=== PATIENT | female | born 1955 | race Caucasian/White ===

== ENCOUNTER → 2017-10-22 | Outpatient (CLI) | payer OTHER | END | disposition home or self-care (01) | LOC: C.LABSPEC 17:27 | PROVIDERS: ATTEND Orthopaedic Surgery | DX: M25.461 Effusion, right knee (principal) ==

== ENCOUNTER 2018-09-22 10:40 | Inpatient (IN) ==
--- NOTE | 2018-08-24 13:05 | Anesthesiology Consultation ---
Date of Service August 24, 2018 Assessment & Plan (1) Encounter for pre-operative examination: PCP Clearance 08/26 = "Patient is currently in stable condition and at low risk for cardiac or pulmonary complications with the proposed procedure." *Pt is on Azilect for Parkinson's disease. Pt instructed at [facility] appt to discontinue this medication two weeks prior to surgery (last dose being Thursday 09/07). Neurologist aware and OK with stopping. PCP instructed patient to continue all Parkinson's medications-- L/M with patient reiterating that she STOP the Azilect on 09/07. Chart Review Chart Review: Acceptable Risk for Surgery and Patient seen in Pre Admission Testing Teaching & Discussion Instructed NPO after midnight before surgery, except medications with 15 cc of w ater. Medication instructions provided according to the [facility] guidelines. History Surgery Operation Date: 09/22/18 13:50 Proposed Procedures p Left Total Knee Arthroplasty - Tono Bella DO Height/Weight Height: 5 ft 3 in Weight: 81.3 kg Allergies Allergy/AdvReac Type Severity Reaction Status Date / Time No Known Allergies Allergy Verified 08/19/18 10:18 Medications Home Medications Medication Instructions Recorded Confirmed Last Taken C,E,zinc,copper [id number] 1 cap PO QAM 08/19/18 08/19/18 Unknown [Ocuvite Adult 50 Plus] amantadine HCl 100 mg PO TID 08/19/18 08/19/18 Unknown baclofen 10 mg PO BID PRN 08/19/18 08/19/18 Unknown carbidopa-levodopa 1 tab PO TID 08/19/18 08/19/18 Unknown cholecalciferol (vitamin D3) 2,000 unit PO QPM 08/19/18 08/19/18 Unknown [Vitamin D3] ibuprofen 800 mg PO Q6H PRN 08/19/18 08/19/18 Unknown lisinopril 10 mg PO QAM 08/19/18 08/19/18 Unknown rasagiline 1 mg PO QAM 08/19/18 08/19/18 Unknown Past Medical History Medical History Anxiety Hypertension Obesity Osteoarthritis Parkinson disease DX'D 2011-F/U IGNATIOPHELIA SOB (shortness of breath) on exertion Sleep apnea PT USED CPAP FOR YEARS BUT NONE FOR PAST 5-6YRS 2/2 FACIAL IRRITATION Exercise / Class Metabolic Activity II 4-5 Yardwork/Stairs/Walk up hill (Some +SOB with 1 FOS, no CP. Does daily.) Past Family History Family History Father No problems noted. Past Surgical History Surgical History Fusion of spine LUMBAR X 2 H/O foot surgery RIGHT BUNION/HAMMERTOE History of arthroscopy LEFT SHOULDER History of colonoscopy History of hysterectomy TOTAL History of total knee replacement RIGHT Past Anesthesia History No Hx of Anesthesia Complications and No Family Hx of Anesthesia Complications History of PONV No Hx of PONV and Hx of Motion Sickness Social History Smoking Status: Current every day smoker tobacco type: cigarettes Smoking cigarettes per day: 15 CIGS A DAY X 44 YRS Do You Dip or Chew Tobacco: No Hx Alcohol Use: No Hx Substance Use: No substance use type: does not use Review of Systems Pt denies any recent chest pain, shortness of breath, palpitations, cough, fever or URI. +post nasal drip with reflexive cough Physical Exam Vital Signs BP: 105/74 P: 68bpm SPO2: 96% RA T: 98.2 F R: 18 ENMT Mouth: + chipped teeth (upper L incisor) and + loose teeth (*LOOSE LOWER R C ENTRAL INCISOR*); no dental restorations Thyromental Distance: > or= 3.5 Finger Breadths (4) Mallampati Class: II Neck normal visual inspection and + limited neck extension (mildly) Respiratory normal respiratory effort Auscultation: lungs clear to auscultation bilaterally Cardiovascular Rate/Rhythm: regular rate and regular rhythm Heart Sounds: no murmur Vessels: no carotid bruit Extremities: no edema Testing Laboratory Results 08/24/18 13:49 08/24/18 13:43 08/24/18 08/24/18 08/24/18 13:49 13:49 13:49 PT 10.7 INR 1.0 APTT 27.7 Hemoglobin A1c 5.7 H Urine Color Yellow Urine Appearance Clear Urine pH 5.0 Ur Specific Robbins 1.019 Urine Protein Negative Urine Glucose (UA) Negative Urine Ketones Trace H Urine Nitrite Negative Ur Leukocyte Esterase Negative Blood Type Antibody Screen 08/24/18 13:49 PT INR APTT Hemoglobin A1c Urine Color Urine Appearance Urine pH Ur Specific Robbins Urine Protein Urine Glucose (UA) Urine Ketones Urine Nitrite Ur Leukocyte Esterase Blood Type A Positive Antibody Screen NEGATIVE Electrocardiogram Date: 08/24/18 Findings: + NSR @ (63) Chest X-Ray Date: 08/24/18 Findings: + NAD
--- NOTE | 2018-08-24 13:20 | PAT Medication Instructions ---
Medication Instructions Date of Service August 24, 2018 Home Medications C,E,zinc,copper [id number] [Ocuvite Adult 50 Plus] 1 cap PO QAM amantadine HCl 100 mg PO TID baclofen 10 mg PO BID PRN carbidopa-levodopa 1 tab PO TID cholecalciferol (vitamin D3) 2,000 unit PO QPM ibuprofen 800 mg PO Q6H PRN lisinopril 10 mg PO QAM rasagiline 1 mg PO QAM STOP taking 2 weeks before surgery C,E,zinc,copper [id number] [Ocuvite Adult 50 Plus] 1 cap PO QAM rasagiline 1 mg PO QAM --LAST DOSE THURSDAY 09/07 DO NOT take the morning of surgery baclofen 10 mg PO BID PRN lisinopril 10 mg PO QAM Take morning of surgery With a small sip of water, OTHERWISE NOTHING TO EAT OR DRINK AFTER MIDNIGHT: amantadine HCl 100 mg PO TID carbidopa-levodopa 1 tab PO TID Take evening before surgery amantadine HCl 100 mg PO TID baclofen 10 mg PO BID PRN (if needed) carbidopa-levodopa 1 tab PO TID cholecalciferol (vitamin D3) 2,000 unit PO QPM Other Notes If you have any questions please call us at [phone] or [phone] or [phone] or [phone]
[2018-08-24 14:22] LABS: Basophils # (auto) 0.05 K/uL (0-0.2); Basophils % (auto) 0.6 %; Eosinophils # (auto) 0.09 K/uL (0-0.5); Eosinophils % (auto) 1.2 %; Hematocrit (blood only) 41.9 % (37-47); Hemoglobin 14.1 g/dL (12.0-16.0); Immature Granulocytes # (auto) 0.01 K/uL (0.00-0.02); Immature Granulocytes % (auto) 0.1 %; Lymphocytes % (auto) 26.9 %; Mean Corpuscular Hgb Conc 33.7 g/dL (32-36); Mean Corpuscular Volume 89.7 fL (80-100); Mean Platelet Volume 10.3 fL (7.4-10.4); Monocytes # (auto) 0.56 K/uL (0.11-0.59); Monocytes % (auto) 7.2 %; Neutrophils # (auto) 4.99 K/uL (1.4-6.5); Platelet Count 273 K/uL (130-400); RDW Coefficient of Variation 13.4 % (11.5-14.5); RDW Standard Deviation 43.8 fL (36.4-46.3); Red Blood Count 4.67 M/uL (4.2-5.4)
--- NOTE | 2018-08-24 14:23 | XRay Report ---
XR chest Pre-admission PA/Lat CLINICAL HISTORY: 62 years-old Female presenting with preoperative evaluation. TECHNIQUE: PA and lateral views of the chest were obtained. COMPARISON: None. FINDINGS: Atherosclerosis of the aortic arch. Cardiac silhouette normal in size. Lungs and pleural spaces clear . Degenerative changes of the thoracic spine. Partially visualized lumbar fusion hardware. Upper abdo men normal. IMPRESSION: 1. No acute cardiopulmonary disease. Electronically signed by: Jaxson Tai M.D. 08/24/2018 2:22 PM
[2018-08-24 14:30] LABS: Appearance Urine Clear (Clear); Bilirubin Urine Negative (Negative); Blood Urine Negative (Negative); Color Urine Yellow; Glucose Urine UA Negative (Negative); Ketones Urine Trace (Negative); Leukocyte Esterase Urine Negative (Negative); Nitrite Urine Negative (Negative); Protein Urine Negative (Negative); Specific Gravity Urine 1.019 (1.000-1.030); Urobilinogen Urine Negative (Negative)
[2018-08-24 14:38] LABS: Partial Thromboplastin Time 27.7 Seconds (21.0-31.0); Prothrombin Time 10.7 Seconds (9.0-12.0)
[2018-08-24 16:29] LABS: Albumin Level 3.6 gm/dl (3.4-5.0); BUN Creatinine Ratio 18.2 (10-20); Calcium 9.1 mg/dl (8.5-10.1); Creatinine Clr Calc Pharmacy 88.8 ml/min; Est GFR (African American) 110.2; Est GFR (Non-African American) 95.1; Potassium 4.9 mmol/L (3.5-5.1)
[2018-08-25 06:44] LABS: Estimated Average Glucose 117 mg/dl; Hemoglobin A1C 5.7 % (4.5-5.6)
--- NOTE | 2018-08-26 12:54 | History & Physical Report ---
Date of Service August 26, 2018 Date of Surgery: 09-22-18 Assessment & Plan (1) Degenerative arthritis of left knee: Ramila is s/p knee arthroscopy in October, showed grade III and IV degenerative changes, underwent visco after with no relief. xrays showing DJD, using OTC tylenol with no relief. discussed further options, would like to proceed with a left TKA @ [facility]. at this point pain affecting her ADLs and would like to proceed with a left TKA at [facility] on 09/22/18 History of Present Illness Chief Complaint: left knee pain Primary Care Provider: NO PCP Ms aClero is a 62 year old female who complains of left knee pain, presents for evaluation prior to left total knee replacement at [facility]. She presents with pain and stiffness on the left side. previously had right TKA. She states that the symptoms have been chronic non-traumatic. The symptoms occur constantly with intermittent worsening. Currently the patient states that the symptoms are severe. The pain is described as aching and sharp and the symptoms occur continuously. She rates her current pain as 7/10 and worst is 10/10. The symptoms are aggravated by walking, repetitive activities and weight bearing. Ramila states that the symptoms are relieved by no specific activity. Patient is using a rolling walker for ambulation. Prior NSAIDs include ibuprofen, has also used OTC Tylenol. she has had previous visco as well as cortisone injections. she previously had Left knee arthroscopic partial medial meniscectomy, Partial lateral meniscectomy, Chondroplasty patellofemoral joint, Right knee aspiration by Dr. Bella 10/2017. Allergies Allergy/AdvReac Type Severity Reaction Status Date / Time No Known Allergies Allergy Verified 08/19/18 10:18 Home Medications Home Medications Medication Instructions Recorded Confirmed Type C,E,zinc,copper [id number] 1 cap PO QAM 08/19/18 08/19/18 History [Ocuvite Adult 50 Plus] amantadine HCl 100 mg PO TID 08/19/18 08/19/18 History baclofen 10 mg PO BID PRN 08/19/18 08/19/18 History carbidopa-levodopa 1 tab PO TID 08/19/18 08/19/18 History cholecalciferol (vitamin D3) 2,000 unit PO QPM 08/19/18 08/19/18 History [Vitamin D3] ibuprofen 800 mg PO Q6H PRN 08/19/18 08/19/18 History lisinopril 10 mg PO QAM 08/19/18 08/19/18 History rasagiline 1 mg PO QAM 08/19/18 08/19/18 History Past Med/Surg History Medical History Anxiety Hypertension Osteoarthritis Parkinson disease DX'D 2011-F/U DR ALEXANDRE SOB (shortness of breath) on exertion Sleep apnea PT USED CPAP FOR YEARS BUT NONE FOR PAST 5-6YRS 2/2 FACIAL IRRITATION Surgical History Fusion of spine LUMBAR X 2 H/O foot surgery RIGHT BUNION/HAMMERTOE History of arthroscopy LEFT SHOULDER History of colonoscopy History of hysterectomy TOTAL History of total knee replacement RIGHT Family History Father No problems noted. Social History Preferred Language: German Communication Ability: Effective Drama Critic Required: No Beliefs That Will Affect Care: None Current Living Situation: Spouse Other Information That Helps Us Care for You: No Feels Safe at Home: Yes Safety Concerns: Feels Safe At This Time Smoking Status: Current every day smoker Tobacco Type: cigarettes Cigarettes Per Day: 15 CIGS A DAY X 44 YRS Do You Dip or Chew Tobacco: No Second Hand Exposure: No Hx Alcohol Use: No Hx Substance Use: No Review of Systems Review of Systems: All systems reviewed & are unremarkable except as noted in HPI & below Constitutional: no fever, no chills and no sweats Respiratory: no cough and no dyspnea Cardiovascular: no chest pain Gastrointestinal: no abdominal pain Musculoskeletal: as per Subjective / HPI Integumentary: no rash Physical Exam Physical Exam: Ht: 5ft 3in Wt: 81.3kg BP: 126/84 Pulse: 72 Constitutional: WD/WN, vitals as above no acute distress Respiratory: normal respiratory effort, lungs clear to auscultation no respiratory distress, no labored breathing and does not use accessory muscles Cardiovascular: RRR, no murmur, no edema Gastrointestinal (Abdomen): normal bowel sounds, soft, nontender, no hepatosplenomegaly Musculoskeletal: Left Knee Physical Exam- she ambulates with a limp, there is no erythema or warmth, no ecchymosis, mild effusion, greatest tenderness over the medial joint line, positive crepitation with motion, modesto's negative, posterior drawer negative. positive mcmurrays medially, negative anterior drawer, knee stable with valgus/varus stress. no extensor lag. pain with active range of motion, AROM 0/3/110, Passive ROM 0/3/115. No pain with active/passive ROM of ankle. Lower Extremity Strength normal. Lower Extremity Neuro-vascular is normal Results & Data Diagnostic Findings Left Knee X-ray 08-17-18 showing degenerative changes to the left knee, greatest in her medial compartment and the PF joint. findings consistent with joint space narrowing, osteophyte formation and subchondral sclerosis. no acute bony pathology noted.
[~2018-09-22 10:40] MED LIST: ACETAMINOPHEN 500 MG TAB PO SCH; BUPIVACAINE 0.5 % 5 MG/1 ML PF 10ML VIAL ONE; CEFAZOLIN 2000MG 2,000 MG/15 ML SYR IV SCH; CeleBREX 200 MG CAP PO SCH; FAMOTIDINE 20 MG TAB PO SCH; GABAPENTIN 600 MG DOSE PO SCH; LIDOCAINE HCL 2% 2 ML VIAL/AMP(20MG/ML) INFIL ONE; LR 500ML BOLUS IV SCH; LR 500ML BOLUS, THEN 15ML/HR IV SCH; METOCLOPRAMIDE HCL 10 MG TABLET PO SCH; MIDAZOLAM HCL 1 MG/ML 2ML VIAL ONE; PROPOFOL IV EMULSION 10 MG/ML 20 ML VIAL IV ONE; ROPIVACAINE 0.5% 5 MG/ML 30 ML VIAL ONE; ROPIVACAINE 0.5% HCL/PF 150 MG, BUPIVACAINE 0.5% MPF 30 ML, EPINEPHrine 30MG/30ML (OR U... INSTIL SCH; TRANEXAMIC ACID 1,000 MG **IV Intra-op IV SCH; TRANEXAMIC ACID 1,000 MG **IV Pre-op IV SCH; dexAMETHasone 4 MG TAB PO SCH; fentaNYL citrate 100 MCG/2 ML VIAL ONE
--- NOTE | 2018-09-22 11:16 | History & Physical Bridge Note ---
Date of Service September 22, 2018 History & Physical Bridge Note I have examined the patient, reviewed the History & Physical and in the interval since the performance of the History & Physical I have noted the following changes of clinical significance: no changes noted
[2018-09-22] MEDS ORDERED: ONDANSETRON INJ 2 MG/ML 2 ML VIAL ONE (11:19)
[2018-09-22] MEDS ORDERED: ONDANSETRON INJ 2 MG/ML 2 ML VIAL IV PRN ×2 (11:34→15:35)
[2018-09-22] MEDS ORDERED: ATROPINE SULFATE 0.1 MG/ML 10ML SYR IV PRN (11:34)
[2018-09-22] MEDS ORDERED: ePHEDrine sulfate 50 MG/ML AMP IV PRN (11:34)
[2018-09-22] MEDS ORDERED: fentaNYL citrate 100 MCG/2 ML VIAL IV PRN (11:34)
[2018-09-22] MEDS ORDERED: BACITRACIN INJ 50,000 UNIT VIAL ONE (11:47)
[2018-09-22] MEDS ORDERED: ORTHO JOINT ANESTHETIC ONE (11:47)
[2018-09-22] MEDS ORDERED: ePHEDrine sulfate 50 MG/ML SYR ONE (13:10)
--- NOTE | 2018-09-22 13:20 | Operative Report ---
Post Operative Report Pre & Post Diagnosis Operation Date: 09/22/18 13:20 Pre-Op Diagnosis: Degenerative arthritis of left knee Post-Op Diagnosis: Degenerative arthritis of left knee Procedure Operation Date: 09/22/18 13:20 Actual Procedures p Left Total Knee Arthroplasty(Left) utilizing [employer]on [employer] Nephew non-block journey to total knee arthroplasty size 5 femur 4 tibia 10 polyethylene 32 oval patella- Tono Bella DO Surgeon Tono Bella DO [employer] Rah CALDWELL Estimated Blood Loss 5 Findings Consistent with Post-Op Diagnosis Patient presents severe end-stage tricompartmental degenerative disease left knee medial osteophyte subchondral cystic changes eburnated [id number] patient presents for total knee arthroplasty after failed attempts at conservative management Specimens Bone and cartilage Drains Medium bore Hemovac Complications none Disposition Accompanied Patient To Recovery: No Disposition: Recovery Room Indications Patient presents with severe end-stage tricompartmental degenerative disease left knee no response to conservative management and physical therapy anti- inflammatories relative rest activity modification cortical steroid injections patient presents for left total knee arthroplasty Description of Procedure After proper prepping and draping of the left lower extremity anterior midline incision was made over the region of the extensor extensor mechanism after meticulous hemostasis was obtained and maintained in subcutaneous tissues a medial parapatellar incision was made The patella was subluxed lateralward the medial lateral gutter were cleaned from any hypertrophic synovitis and scar tissue of the distal femoral block was placed and the distal femoral osteotomy cut was made subsequently the chamfers anterior and posterior osteotomy cuts were made utilizing the 4-in-1 block the tibia was subsequently subluxed anteriorward medial and ateral meniscal remnants were excised in their entirety remnants of the anterior and posterior cruciate ligaments were excised in their entirety excellent exposure of the proximal tibia was obtained the tibial osteotomy guide was placed on the proximal tibial osteotomy cut was made once again the knee was irrigated with copious amounts of sterile saline solution the patella was subsequently everted lateralward thickened scar tissue around the patella was removed the patella was subsequently cut utilizing a freehand technique and was drilled prepared for final preparation and placement of patella socially flexion-extension gaps were checked and the equal and symmetric trials were placed to the appropriate femoral and tibial trials with poly-spacer being placed for equal flexion and extension gaps and full range of motion including extension to 0 and flexion to 140 the trial components after having been taken to recovery range of motion was subsequently removed meticulous hemostasis was obtained and maintained subsequently a knee block injection of joint cocktail including ropivacaine 0.5% 150 mg. Bupivacaine 0.5% epinephrine 1-200,030 mL's toradol 30 mg dexamethasone 4 mg ketamine 10 mg clonidine 100 micrograms normal saline solution 30 mg was infiltrated into the soft tissues of the posterior knee medial lateral gutters and periosteal synovium special attention was paid to protect neurovascular structures at all times subsequently trial components having been removed the knee was irrigated with sterile saline solution. debris was removed the proximal tibia was subsequently prepared and was made ready for the placement of the tibial component tibial component was also cemented and tamped into position the femoral component was subsequently placed and cemented in the position the patellar component was subsequently cemented in position because hemostasis once again obtained and maintained wound having been thoroughly irrigated with debridement and debridement lavage was performed as well as a medial parapatellar incision closed with #1 Vicryl in interrupted fashion subcutaneous was closed with #2 Vicryl skin was closed with skin clips. PA-C was necessary for prepping and drapping as well as wound baltazar sure of deep fascia Sub cutaneous tissue and skin and was necessary for the case. A sterile compressive dressing was placed patient was taken to recovery in stable condition of report dictated by Shayne I attest to the content of the Intraoperative Record and any orders documented therein. Any exceptions are noted below. I attest to the content of the Intraoperative Record and any orders documented therein. Any exceptions are noted below.
--- NOTE | 2018-09-22 14:51 | XRay Report ---
TWO VIEWS LEFT KNEE CLINICAL HISTORY: Postoperative examination. FINDINGS: AP and crosstable lateral portable views of the left knee are obtained. A left knee arthrop lasty is in near anatomic alignment. There has been undersurface remodeling of the patella. No acute fracture is seen. There are expected postoperative changes around the knee including a surgical drain , soft tissue edema, and subcutaneous gas. IMPRESSION: Expected postoperative changes status post left knee arthroplasty. No acute fracture is s een. Electronically signed by: Martin Liu M.D. 09/22/2018 2:50 PM
--- NOTE | 2018-09-22 15:19 | Anesthesiology Progress Note ---
Date of Service September 22, 2018 Anesthesia Post Procedure Vital Signs Vital Signs: Temp Pulse Pulse Resp BP Pulse Ox 09/22/18 14:55 36.8 C 69 12 120/69 97 09/22/18 14:45 78 18 116/78 93 09/22/18 14:35 78 17 127/72 92 09/22/18 14:25 77 15 126/67 93 09/22/18 14:15 78 19 116/73 98 09/22/18 14:05 36.9 C 78 17 117/68 97 09/22/18 11:21 36.6 C 84 20 129/87 96 Transfer of Care Handoff Completed per policy Notes Mental Status: alert / awake / arousable and participated in evaluation Patient Amnestic to Procedure: Yes Nausea / Vomiting: adequately controlled Pain: adequately controlled Airway Patency, RR, SpO2: stable & adequate BP & HR: stable & adequate Hydration State: stable & adequate Anesthetic Complications: no major complications apparent and Pt Satisfied with anesthetic care
[2018-09-22] MEDS ORDERED: HYDROmorphone INJ 1 MG/ML SYRINGE IV PRN (15:35)
[2018-09-22] MEDS ORDERED: METOCLOPRAMIDE HCL INJ 5 MG/ML 2 ML VIAL IV PRN (15:35)
[2018-09-22] MEDS ORDERED: SODIUM CHLORIDE 0.9% 1000ML 1,000 ML IV SCH (15:35)
[2018-09-22] MEDS ORDERED: MAGNESIUM HYDROXIDE SUSP 30 ML UDC PO PRN (15:35)
[2018-09-22] MEDS ORDERED: BISACODYL 10 MG SUPP PR PRN (15:35)
[2018-09-22] MEDS ORDERED: BACLOFEN 10 MG TAB PO PRN (15:35)
[2018-09-22] MEDS ORDERED: NALOXONE HCL 0.4 MG/1 ML VIAL/CARP IV PRN (15:35)
[2018-09-22] MEDS: KETOROLAC TROMETHAMINE 15 MG/ML VIAL IV SCH (17:31)
[2018-09-22] MEDS: CEFAZOLIN 2000MG 2,000 MG/15 ML SYR IV SCH (20:31)
[2018-09-22] MEDS: SENNA 8.6 MG TAB PO SCH (20:32)
[2018-09-22] MEDS: DOCUSATE SODIUM 100 MG CAP PO SCH (20:32)
[2018-09-22] MEDS: ASPIRIN 81 MG ECTAB PO SCH (20:32)
[2018-09-22] MEDS: CARBIDOPA/LEVODOPA 25/100MG TAB PO SCH (20:33)
[2018-09-22] MEDS: AMANTADINE HCL 100 MG CAPSULE PO SCH (20:33)
[2018-09-22] MEDS: CHOLECALCIFEROL 1,000 UNITS TAB PO SCH (20:33)
[2018-09-22] MEDS: ACETAMINOPHEN 500 MG TAB PO SCH (21:16)
[2018-09-23] MEDS: KETOROLAC TROMETHAMINE 15 MG/ML VIAL IV SCH ×3 (00:06→11:57)
[2018-09-23] MEDS: ACETAMINOPHEN 500 MG TAB PO SCH ×3 (04:43→22:27)
[2018-09-23] MEDS: CEFAZOLIN 2000MG 2,000 MG/15 ML SYR IV SCH (04:43)
[2018-09-23 06:51] LABS: Hematocrit (blood only) 39.4 % (37-47); Hemoglobin 13.1 g/dL (12.0-16.0); Mean Corpuscular Hgb Conc 33.2 g/dL (32-36); Mean Corpuscular Volume 89.5 fL (80-100); Mean Platelet Volume 10.3 fL (7.4-10.4); Platelet Count 236 K/uL (130-400); RDW Standard Deviation 42.7 fL (36.4-46.3); White Blood Count 19.97 K/uL (4.8-10.8)
[2018-09-23 07:24] LABS: BUN Creatinine Ratio 21.1 (10-20); Est GFR (African American) 110.7; Est GFR (Non-African American) 95.5; Potassium 4.4 mmol/L (3.5-5.1)
--- NOTE | 2018-09-23 08:16 | Anesthesiology Progress Note ---
Date of Service September 23, 2018 Anesthesia Post Procedure Vital Signs Vital Signs: Temp Pulse Pulse Resp BP Pulse Ox 09/23/18 07:09 36.8 C 75 18 144/70 H 94 09/23/18 03:47 36.6 C 69 18 138/73 93 09/22/18 23:08 36.8 C 79 17 134/74 90 09/22/18 19:19 37.0 C 73 18 135/74 94 09/22/18 18:18 36.8 C 79 17 151/74 H 94 09/22/18 17:15 36.8 C 90 18 153/75 H 94 09/22/18 16:13 36.6 C 72 17 127/75 93 09/22/18 15:37 36.5 C 69 17 114/70 94 09/22/18 15:15 36.8 C 75 16 129/81 91 09/22/18 14:55 36.8 C 69 12 120/69 97 09/22/18 14:45 78 18 116/78 93 09/22/18 14:35 78 17 127/72 92 09/22/18 14:25 77 15 126/67 93 09/22/18 14:15 78 19 116/73 98 09/22/18 14:05 36.9 C 78 17 117/68 97 09/22/18 11:21 36.6 C 84 20 129/87 96 Notes Mental Status: alert / awake / arousable and participated in evaluation Patient Amnestic to Procedure: Yes Nausea / Vomiting: adequately controlled Pain: adequately controlled Airway Patency, RR, SpO2: stable & adequate BP & HR: stable & adequate Hydration State: stable & adequate Neuraxial Anesthesia: was administered and sensory block resolved Anesthetic Complications: no major complications apparent and Pt Satisfied with anesthetic care
[2018-09-23] MEDS: ASPIRIN 81 MG ECTAB PO SCH ×2 (08:32→20:26)
[2018-09-23] MEDS: LISINOPRIL 10 MG TAB PO SCH (08:33)
[2018-09-23] MEDS: MULTIVITAMIN TAB PO SCH (08:33)
[2018-09-23] MEDS: DOCUSATE SODIUM 100 MG CAP PO SCH ×2 (08:33→20:26)
[2018-09-23] MEDS: CARBIDOPA/LEVODOPA 25/100MG TAB PO SCH ×3 (08:33→20:26)
[2018-09-23] MEDS: AMANTADINE HCL 100 MG CAPSULE PO SCH ×3 (08:33→20:26)
--- NOTE | 2018-09-23 09:48 | Orthopedic Progress Note ---
Date of Service September 23, 2018 Assessment & Plan (1) Degenerative arthritis of left knee: POD #1, Left TKA PT/ OT DVT proph- ASA D/C planning- Home w HH Subjective POD #1, doing well, denies SOB, Cp, N/V. Pain controlled well. Drain output 250cc's Physical Exam Physical Exam: Left knee dressings c/d/i, no drainage, toes/ ankle mobile, no calf tenderness, A&Ox3. Results & Data Vital Signs (Past 12 Hours) Vital Signs Temp Pulse Resp BP Pulse Ox 09/23/18 07:09 36.8 C 75 18 144/70 H 94 09/23/18 03:47 36.6 C 69 18 138/73 93 09/22/18 23:08 36.8 C 79 17 134/74 90
[2018-09-23] MEDS: OXYCODONE HCL IR 5 MG TAB (IMMEDIATE RELEASE) PO PRN ×2 (10:31→15:37)
[2018-09-23] MEDS: SENNA 8.6 MG TAB PO SCH (20:26)
[2018-09-23] MEDS: CeleBREX 200 MG CAP PO SCH (20:26)
[2018-09-23] MEDS: CHOLECALCIFEROL 1,000 UNITS TAB PO SCH (20:26)
[2018-09-24] MEDS: OXYCODONE HCL IR 5 MG TAB (IMMEDIATE RELEASE) PO PRN ×2 (03:53→08:00)
[2018-09-24] MEDS: ACETAMINOPHEN 500 MG TAB PO SCH (05:40)
--- NOTE | 2018-09-24 07:21 | Orthopedic Progress Note ---
Date of Service September 24, 2018 Assessment & Plan (1) Degenerative arthritis of left knee: POD #2, Left TKA PT/ OT DVT proph- ASA D/C planning- Home w HH Subjective POD #2, doing well, denies SOB, Cp, N/V. Pain controlled well. Physical Exam Physical Exam: Vital Signs Temp Pulse Resp BP Pulse Ox 09/23/18 23:30 36.7 C 72 17 113/67 92 09/23/18 16:03 36.8 C 63 18 104/65 95 09/23/18 10:52 36.9 C 67 16 115/70 95 Intake and Output 09/23/18 09/24/18 09/24/18 22:59 06:59 14:59 Intake Total 400 / 600 200 / 600 Output Total 125 / 375 50 / 375 Balance 275 / 225 150 / 225 Intake: Oral 400 / 600 200 / 600 Output: Drain Output 125 / 225 50 / 225 Left Knee 125 / 225 50 / 225 Other: # Unmeasured Voi ds 1 Constitutional: WD/WN, vitals as above no acute distress Musculoskeletal: left knee: NVDI, calf SNT, negative stacey sign. DP palpable, able to wiggle toes/ankle movement without difficulty. GAUDENCIO dressing clean dry and intact. expected post-operative bruising noted. Results & Data Vital Signs (Past 12 Hours) Vital Signs Temp Pulse Resp BP Pulse Ox 09/23/18 23:30 36.7 C 72 17 113/67 92 Diagnostic Findings TWO VIEWS LEFT KNEE CLINICAL HISTORY: Postoperative examination. FINDINGS: AP and crosstable lateral portable views of the left knee are obtained. A left knee arthroplasty is in near anatomic alignment. There has been undersurface remodeling of the patella. No acute fracture is seen. There are expected postoperative changes around the knee including a surgical drain, soft tissue edema, and subcutaneous gas. IMPRESSION: Expected postoperative changes status post left knee arthroplasty. No acute fracture is seen.
--- NOTE | 2018-09-24 07:45 | Discharge Summary ---
Date of Service date of discharge: September 24, 2018 date of admission: 09/22/18 Admission HPI Per Admitting Provider Ms Calero is a 62 year old female who complains of left knee pain, presents for evaluation prior to left total knee replacement at [facility]. She presents with pain and stiffness on the left side. previously had right TKA. She states that the symptoms have been chronic non-traumatic. The symptoms occur constantly with intermittent worsening. Currently the patient states that the symptoms are severe. The pain is described as aching and sharp and the symptoms occur continuously. She rates her current pain as 7/10 and worst is 10/10. The symptoms are aggravated by walking, repetitive activities and weight bearing. Ramila states that the symptoms are relieved by no specific activity. Patient is using a rolling walker for ambulation. Prior NSAIDs include ibuprofen, has also used OTC Tylenol. she has had previous visco as well as cortisone injections. she previously had Left knee arthroscopic partial medial meniscectomy, Partial lateral meniscectomy, Chondroplasty patellofemoral joint, Right knee aspiration by Dr. Bella 10/2017. Principal Diagnosis left knee osteoarthritis Discharge Exam Vital Signs Temp Pulse Resp BP Pulse Ox 09/23/18 23:30 36.7 C 72 17 113/67 92 09/23/18 16:03 36.8 C 63 18 104/65 95 09/23/18 10:52 36.9 C 67 16 115/70 95 Intake and Output 09/23/18 09/24/18 09/24/18 22:59 06:59 14:59 Intake Total 400 / 600 200 / 600 Output Total 125 / 375 50 / 375 Balance 275 / 225 150 / 225 Intake: Oral 400 / 600 200 / 600 Output: Drain Output 125 / 225 50 / 225 Left Knee 125 / 225 50 / 225 Other: # Unmeasured Voids 1 Constitutional WD/WN, vitals as above no acute distress Musculoskeletal left knee: NVDI, calf SNT, negative stacey sign. DP palpable, able to wiggle toes/ankle movement without difficulty. GAUDENCIO dressing clean dry and intact. expected post-operative bruising noted. Discharge Data Allergies Allergy/AdvReac Type Severity Reaction Status Date / Time No Known Allergies Allergy Verified 09/22/18 11:14 Consultations 09/22/18 15:35 Consult Case Management - Discharge Planning Routine Procedures Performed Operation Date: 09/22/18 13:20 Actual Procedures p Left Total Knee Arthroplasty(Left) - Tono Bella DO Ordered Studies 09/22/18 05:00 US - OR guided needle placemen Routine Hospital Course (1) Degenerative arthritis of left knee: POD #2, Left TKA PT/ OT DVT proph- ASA D/C planning- Home w HH Patient was a same day admission after undergoing a successful left TKA, they tolerated the procedure well. Post-operatively, their activity was progressed and well tolerated. Please refer to daily progress notes and PT notes for complete details. After exam on 09/24/18, patient felt to be stable for discharge home with HHPT. Patient will f/u in the office in 2 weeks for further evaluation including x-rays and incision check, sooner if having any issues or concerns. Below are pertinent labs/studies during their hospital stay: Laboratory Results WBC 19.97 K/uL (4.8-10.8) H 09/23/18 06:34 RBC 4.40 M/uL (4.2-5.4) 09/23/18 06:34 Hgb 13.1 g/dL (12.0-16.0) 09/23/18 06:34 Hct 39.4 % (37-47) 09/23/18 06:34 MCV 89.5 fL (80-100) 09/23/18 06:34 MCH 29.8 pg (25-34) 09/23/18 06:34 MCHC 33.2 g/dL (32-36) 09/23/18 06:34 RDW Std Deviation 42.7 fL (36.4-46.3) 09/23/18 06:34 RDW Coeff of Maren 13.0 % (11.5-14.5) 09/23/18 06:34 Plt Count 236 K/uL (130-400) 09/23/18 06:34 MPV 10.3 fL (7.4-10.4) 09/23/18 06:34 Immature Gran % (Auto) 0.1 % 08/24/18 13:49 Neut % (Auto) 64.0 % 08/24/18 13:49 Lymph % (Auto) 26.9 % 08/24/18 13:49 Bennett % (Auto) 7.2 % 08/24/18 13:49 Eos % (Auto) 1.2 % 08/24/18 13:49 Baso % (Auto) 0.6 % 08/24/18 13:49 Immature Gran # (Auto) 0.01 K/uL (0.00-0.02) 08/24/18 13:49 Neut # (Auto) 4.99 K/uL (1.4-6.5) 08/24/18 13:49 Lymph # (Auto) 2.10 K/uL (1.2-3.4) 08/24/18 13:49 Bennett # (Auto) 0.56 K/uL (0.11-0.59) 08/24/18 13:49 Eos # (Auto) 0.09 K/uL (0-0.5) 08/24/18 13:49 Baso # (Auto) 0.05 K/uL (0-0.2) 08/24/18 13:49 PT 10.7 Seconds (9.0-12.0) 08/24/18 13:49 INR 1.0 (0.9-1.1) 08/24/18 13:49 APTT 27.7 Seconds (21.0-31.0) 08/24/18 13:49 PTT Ratio 1.0 08/24/18 13:49 Sodium 140 mmol/L (136-145) 09/23/18 06:34 Potassium 4.4 mmol/L (3.5-5.1) 09/23/18 06:34 Chloride 108 mmol/L (98-107) H 09/23/18 06:34 Carbon Dioxide 26 mmol/L (21-32) 09/23/18 06:34 Anion Gap 6.0 (3-11) 09/23/18 06:34 BUN 14 mg/dl (7-18) 09/23/18 06:34 Creatinine 0.67 mg/dl (0.6-1.2) 09/23/18 06:34 Est Cr Clr Drug Dosing 88.0 ml/min 09/23/18 06:34 Est GFR ( Amer) 110.7 09/23/18 06:34 Est GFR (Non-Af Amer) 95.5 09/23/18 06:34 BUN/Creatinine Ratio 21.1 (10-20) H 09/23/18 06:34 Glucose 115 mg/dl (70-99) H 09/23/18 06:34 Estimat Average Glucose 117 mg/dl 08/24/18 13:49 Hemoglobin A1c 5.7 % (4.5-5.6) H 08/24/18 13:49 Calcium 9.0 mg/dl (8.5-10.1) 09/23/18 06:34 Albumin 3.6 gm/dl (3.4-5.0) 08/24/18 13:43 Urine Color Yellow 08/24/18 13:49 Urine Appearance Clear (Clear) 08/24/18 13:49 Urine pH 5.0 (4.5-7.5) 08/24/18 13:49 Ur Specific Bosworth 1.019 (1.000-1.030) 08/24/18 13:49 Urine Protein Negative (Negative) 08/24/18 13:49 Urine Glucose (UA) Negative (Negative) 08/24/18 13:49 Urine Ketones Trace (Negative) H 08/24/18 13:49 Urine Blood Negative (Negative) 08/24/18 13:49 Urine Nitrite Negative (Negative) 08/24/18 13:49 Urine Bilirubin Negative (Negative) 08/24/18 13:49 Urine Urobilinogen Negative (Negative) 08/24/18 13:49 Ur Leukocyte Esterase Negative (Negative) 08/24/18 13:49 Hepatitis C Ab Screen Neg (Neg) 09/23/18 06:34 Blood Type A Positive 08/24/18 13:49 Antibody Screen NEGATIVE 08/24/18 13:49 Total Time Total Time Spent Total Time Spent (In Minutes): 20 Total Time Includes: Examination of the Patient, Discharge Planning and Medication Reconciliation Discharge Plan Discharge Items Patient Disposition: Home - Home Health Services Reason For Visit: left total knee replacement Discharge Diagnosis: left total knee replacement Condition: Good Discharge Goals: Decrease discomfort, Improve function and Increase independence Activity: Per 'Additional Instructions' section Non-emergency contact: Primary Care Provider and Surgeon Call non-emergency contact if: you have any medication questions, your temperature is above 101, your wound has increased redness, your wound has increased drainage and your wound pain has increased Follow-up/Referrals: PCP,NO [Primary Care Provider] - Diet: Regular Addtl Provider Instructions: ACTIVITY RECOMMENDATIONS: SELF CARE INSTRUCTIONS AFTER TOTAL KNEE REPLACEMENT A. You may need to continue a physical therapy program after discharge from the hospital. There are several options available to you. Your doctor will assist you in selecting the best one for you. 1. An out-patient facility 2 to 3 times a week for therapy or home therapy. 2. Continue working on all exercises taught to you in the hospital. Your goals should be to increase bending of your knee to 90 degrees and beyond and to fully straighten your knee. B. You may progress at your own pace from walking with a walker or crutches to a cane; then to no assistive devices. C. Make walking a part of your daily routine. Be up as much as comfortable with rest periods throughout the day. Rest with leg elevation is very important. Use the ice wrap frequently for the first 3-4 weeks. D. There are no restrictions on activities. You may ride in a car, shop, participate in floor worker well service and all social activities. E. Wear the long elastic stockings (SAKSHI hose) 20 hours a day for 2 weeks after surgery. They can be removed several times a day for laundering and for a bath. F. You may shower, no tub baths until cleared by your doctor. SPECIAL CARE INSTRUCTIONS: VERY IMPORTANT TO READ AND REVIEW A. There are a few signs you need to watch for after you are home. Call [facility] if you notice any of the followin. Increased severe knee pain. Some pain is expected especially when you exercise. 2. Increased swelling in your leg or knee; pain or swelling of the calf muscle in either lower leg. 3. Any fluid drainage from the incision. 4. Shortness of breath or chest pain. B. Please call [facility] at if you have any concerns or questions about your operation or recovery. The doctor or his nurse will return your call promptly. C. You must take antibiotics before dental work, bladder, bowel or other surgery. Your doctor will provide you with a permanent care to carry describing this precaution. IMPORTANT: * REMEMBER TO TAKE ASPIRIN, 81 MG, TWICE DAILY FOR 4 WEEKS UNLESS OTHERWISE DIRECTED. THIS IS YOUR BLOOD THINNER. * HIGH RISK PATIENTS MAY BE PRESCRIBED A STRONGER BLOOD THINNER. THIS WILL BE PROVIDED AT DISCHARGE. * CALL IF INCREASED PAIN, REDNESS, DRAINAGE OR FEVER GREATER THAT 101. * WEAR SAKSHI HOSE 20 HOURS PER DAY FOR 2 WEEKS. * GAUDENCIO Dressing- This is a large suction dressing covering your incision. This will help pull any excess drainage from the wound and allow your incision to heal properly. You may shower with this if you can keep the unit outside of the shower. If any bleeding or leakage is noted please call your doctor's office. This will remain on your incision for 7 days and then should be removed. This can be done yourself or by the home nursing staff if applicable. The entire unit is disposable once removed. Once removed, keep incision clean and dry. If redness or drainage is noted, please call your surgeon. AFTER GAUDENCIO IS REMOVED, FOLLOW THESE INSTRUCTIONS: DERMABOND Prineo- This is a mesh tape dressing that is covered with glue. It should remain in place until the incision is properly healed, usually 10-14 days. This dressing is designed to naturally slough off. You may trim the excess mesh tape as it peels off. Incision may be briefly wet in a shower. Dry immediately by blotting with a clean, dry towel. Do not bath or swim until instructed by your doctor. Do not scratch, rub, or pick at the dressing. Do not apply any topical ointments or lotions until dressing is completely removed and/or instructed by your doctor. There may be a small piece of suture material at one end of your incision. Do not pull or trim this. If it is bothersome or catching on clothing, you may cover it with a band-aid. IF INCISION IS LEAKING THROUGH DRESSING, CALL THE OFFICE . FOLLOW UP VISIT: If appointment is not already scheduled: Please call [facility] to make a follow-up appointment for 2 weeks after your surgery at . Prescriptions: New acetaminophen [Tylenol Extra Strength] 500 mg Tablet 1,000 mg PO Q8 30 Days Qty: 180 RF: 0 aspirin [Ecotrin Low Strength] 81 mg Tablet,Delayed Release (Dr/Ec) 81 mg PO BID 30 Days Qty: 60 RF: 0 celecoxib [Celebrex] 200 mg Capsule 200 mg PO BID 30 Days Qty: 60 RF: 0 oxycodone 5 mg Tablet 5 mg PO Q4H PRN (Reason: pain) Qty: 30 RF: 0 docusate sodium 100 mg Capsule 100 mg PO BID 10 Days Qty: 20 RF: 0 cefadroxil 500 mg capsule 500 mg PO BID 10 Days Qty: 20 RF: 0 Continued amantadine HCl 100 mg Capsule 100 mg PO TID RF: 0 baclofen 10 mg Tablet 10 mg PO BID PRN (Reason: Spasms) RF: 0 lisinopril 10 mg Tablet 10 mg PO QAM RF: 0 carbidopa-levodopa 25-100 mg Tablet 1 tab PO TID RF: 0 cholecalciferol (vitamin D3) [Vitamin D3] 2,000 unit Capsule 2,000 unit PO QPM RF: 0 Ocuvite Adult 50 Plus 250-5-1 mg Capsule 1 cap PO QAM RF: 0 Discontinued rasagiline 1 mg Tablet 1 mg PO QAM RF: 0 ibuprofen 800 mg Tablet 800 mg PO Q6H PRN (Reason: Pain) RF: 0 Stand-Alone Forms: [facility] Discharge Orders: Discharge Order (Routine); Ordered 09/24/18 Ordered By: Rah Escobar Admission Data Admit Date/Time: 09/22/18 14:10 Attending Provider: Tono Bella Admit Provider: Tono Bella Primary Care Provider: PCP,NO Service: Surgical Services Other Pending Studies at Discharge: No
[2018-09-24] MEDS: CeleBREX 200 MG CAP PO SCH (07:59)
[2018-09-24] MEDS: LISINOPRIL 10 MG TAB PO SCH (07:59)
[2018-09-24] MEDS: DOCUSATE SODIUM 100 MG CAP PO SCH (08:00)
[2018-09-24] MEDS: ASPIRIN 81 MG ECTAB PO SCH (08:00)
[2018-09-24] MEDS: CARBIDOPA/LEVODOPA 25/100MG TAB PO SCH (08:00)
[2018-09-24] MEDS: MULTIVITAMIN TAB PO SCH (08:00)
[2018-09-24] MEDS: AMANTADINE HCL 100 MG CAPSULE PO SCH (08:00)
== END 2018-09-24 10:10 | disposition home health service (06) | DRG 470 ==
LOC: ASU 10:40 → 3E 14:10